=== PATIENT | female | born 1940 | race Caucasian/White ===

== ENCOUNTER 2019-05-08 14:25 | Outpatient (RCR) | payer MEDICARE, OTHER, SELFPAY ==
[2019-05-08 14:52] VITALS: BP 135/82; PULSE 90; RESP 16; TEMP 37; BMI 26.6
--- NOTE | 2019-05-08 16:14 | PCM.WC.HP ---
(1) Dependent edema Status: Chronic Current Visit: Yes Code(s): R60.9 - Edema, unspecified (2) Leg swelling Status: Chronic Current Visit: Yes Code(s): M79.89 - Other specified soft tissue disorders (3) Leg edema Status: Chronic Current Visit: Yes Code(s): R60.0 - Localized edema (4) Overweight Status: Chronic Current Visit: Yes Code(s): E66.3 - Overweight (5) History of melanoma Status: Chronic Current Visit: No Code(s): Z85.820 - Personal history of malignant melanoma of skin (6) Hypertension Status: Chronic Current Visit: No Code(s): I10 - Essential (primary) hypertension (7) Debility Status: Chronic Current Visit: Yes Code(s): R53.81 - Other malaise (8) Wheelchair bound Status: Chronic Current Visit: Yes Code(s): Z99.3 - Dependence on wheelchair (9) Multiple sclerosis Status: Chronic Current Visit: Yes Code(s): G35 - Multiple sclerosis (10) Pressure ulcer of right heel, stage 3 Status: Chronic Current Visit: Yes Code(s): L89.613 - Pressure ulcer of right heel, stage 3 (11) Contractures of both knees Status: Chronic Current Visit: No Code(s): M24.561 - Contracture, right knee; M24.562 - Contracture, left knee History of Present Illness Date of Service: 05/08/19 Chief Complaint: Pressure ulcer of the right heel, stage III History of Wound: This is a 78-year-old female who presents with a pressure ulcer of the right heel, stage III. It began approximately 3 months ago. At the time, she was hospitalized at the [facility] in [place], [place], as result of a suicide attempt with pills. She remained hospitalized for approximately 10 days. She then was transferred to a assisted for an additional 6 weeks. During that period of time, the patient developed a pressure ulceration on her right heel. Most recently, she has been using Aquacel silver topically. She has returned home, to the care of her . She suffers from multiple sclerosis, and is wheelchair-bound. She spends long hours each day sitting idlely with her legs in a dependent position. Past Medical History Past Medical History: Chronic Problems Dependent edema (Chronic) Leg swelling (Chronic) Leg edema (Chronic) Overweight (Chronic) History of melanoma (Chronic) Hypertension (Chronic) Debility (Chronic) Wheelchair bound (Chronic) Multiple sclerosis (Chronic) Pressure ulcer of right heel, stage 3 (Chronic) Contractures of both knees (Chronic) Past Medical History: Patient's history is negative for myocardial infarction, congestive heart failure, cerebrovascular accident, diabetes mellitus, pulmonary disease, renal disease, thyroid disease, and hyperlipidemia. Patient has a history of hypertension. She has previously been treated for melanoma on her face. She is also known to suffer from debility related to multiple sclerosis. Surgical History: - - Patient has a history of cholecystectomy and hysterectomy. She is undergone left hip and knee replacement procedures. She has had a melanoma excised from her face. The patient is a G4, P5 Ab0 (twins) Allergies/Adverse Reactions: Allergies lorazepam [From Ativan] Allergy (Verified 05/08/19 15:23) Unknown Penicillins [PCN] Allergy (Verified 05/08/19 15:23) Unknown Sulfa (Sulfonamide Antibiotics) Allergy (Verified 05/08/19 15:23) Unknown all narcotics Allergy (Uncoded 05/08/19 15:23) Unknown Home Medications: Ambulatory Orders Medication Instructions Recorded Amlodipine [Norvasc] mg PO DAILY 05/08/19 Citalopram [Celexa] 10 mg PO DAILY 05/08/19 Gabapentin [Neurontin] 300 mg PO BID 05/08/19 Pumpkin Seed Extract/Soy Germ [Azo 300 mg PO 05/08/19 Bladder Control Capsule] Ropinirole HCl [Requip] 10 mg PO 4X/DAY 05/08/19 Tizanidine HCl 10 mg PO TID 05/08/19 - Family History Paternal - - Patient's family history is noncontributory Social History: The patient lives with her . She is retired from the real estate industry. She denies use of tobacco products. She consumes alcoholic beverages occasionally. Smoking Status: Never smoker Review of Systems Constitutional: Denies: Chills, Fever, Weight Change Eyes: Denies: Pain, Vision Change HEENT: Denies: Difficulty Hearing, Difficulty Swallowing, Sinus Congestion Cardiovascular: Denies: Chest Pain, Palpitations Respiratory: Denies: Cough, Shortness of Breath Gastrointestinal: Denies: Diarrhea, Nausea, Vomiting Genitourinary: Denies: Dysuria, Hematuria Endocrine: Denies: Heat/ Cold Intolerance, Polydipsia, Polyuria Hematologic/ Lymphatic: Denies: Easy Bruising, Easy Bleeding - Physical Exam Vital Signs Temp Pulse Resp BP 98.6 F 90 16 135/82 H 05/08/19 14:52 05/08/19 14:52 05/08/19 14:52 05/08/19 14:52 General: Alert, Oriented x3, Cooperative, No apparent distress, Well developed, Well nourished, - - The patient is alert, oriented, and appropriate HEENT: Atraumatic, PERRLA, EOMI, Normocephalic Oral: Moist Mucosa Neck: Supple, No JVD, Negative Carotid Bruits, Negative Hepatojugular Reflux, No Nodes, No Nuchal Rigidity, Trachea Midline Lungs: Clear to auscultation, Normal air movement, No rhonchi, No wheeze, No rales Cardiovascular: Regular rate, Regular Rhythm, Normal S1, Normal S2, No murmurs Abdomen: Soft, Non Tender, Non-Distended Extremities: No clubbing, No cyanosis, No Calf Tenderness, - - Mild to moderate swelling and edema is noted in the lower extremities bilaterally. A well-healed wound is noted on the right lateral calf, the site of the previous wound. There is a stage III pressure ulceration of the right heel. Callus is noted to surround the ulceration. There is a moderate amount of bioburden and nonviable tissue present within the base of the ulceration. Mentions are documented elsewhere. There is no sign of infection or cellulitis. Skin: No rashes Wound Measurements and Assessment WC - Nurse 1 - General Ulcer Measurement Start: 05/08/19 14:52 Freq: Status: Active Protocol: Activity Type Activity Date Activity User E-Sign Co-Sign Detail Recorded Client Recorded Date Recorded By Document 05/08/19 14:52 [facility] [id number] 05/08/19 15:14 [facility] 05/08/19 14:52 Wound Center Nurse 1 [Ulcer Assessment] #1- RT HEEL -Combined with other wound No -Current Size (cm) - Length 1.5 -Current Size (cm) - Width 2.6 -Current Size (cm) - Depth 0.2 -Total Square Cm 3.90 -Date of Last Picture (Recall this 05/08/19 field) -Photo Taken Yes -Epithelialization None Present -Tunneling No -Undermining/Tunneling No -Circular Undermining No -Exudate Amt Small -Exudate Type Serosanguineous -Wound Margin Distinct, Outline Attached -Granulation Amt Medium (34-66%) -Granulation Quality Red -Slough/Fibrin Yes -Necrosis Amt Small (1-33%) -Necrotic Tissue Type Adherent Slough -Texture (Silvia-wound Skin Appearance) Assessed, Scarring -Moisture (Silvia-wound Skin Appearance Assessed ) -Color (Silvia-wound Skin Appearance) Assessed, Erythema -Temperature (Silvia-wound Skin No Abnormality Appearance) (Pt Warm) -Tenderness on Palpation (Silvia-wound No Skin Appearance) -Ulcer Cleansing Rinsed/ Irrigated with Saline -Foul Odor after Cleansing No -Anesthetic Used 5% Lidocaine Gel [Edema Assessment] -Lower Limb Edema Present Yes -Right Calf (cm) 38.2 -Right Ankle (cm) 25 -Left Calf (cm) 36 -Left Ankle (cm) 24.3 WC - Nurse 2 - General Ulcer CM Notes Start: 05/08/19 14:52 Freq: Status: Active Protocol: Activity Type Activity Date Activity User E-Sign Co-Sign Detail Recorded Client Recorded Date Recorded By Document 05/08/19 15:42 MW [id number] 05/08/19 15:58 MW 05/08/19 15:42 Wound Center Nurse 2 [Procedure/Treatment] #1- RT HEEL -Time 15:42 -Correct Patient Yes -Correct Side, Site, Position Yes -Correct Procedure Yes -Procedure Performed Yes -Type of Procedure Debridement -Clinical Debridement Subcutaneous -Post Debridement Size (cm) - Length 1.5 -Post Debridement Size (cm) - Width 2.7 -Post Debridement Size (cm) - Depth 0.2 -Total Square Cm 4.05 -Wound/Ulcer Outcome Not Healed -Ulcer Cleansing Rinsed/ Irrigated with Saline -Foul Odor after Cleansing No -Bioengineered Tissue No -Bleeding Controlled with Pressure -Offloading No -Treatment Response Procedure Tolerated Well [See Physician Procedure note for Specifics] Pain Scale: 0-10 Numeric [Pain] -Is Patient Pain Free? Yes Musculoskeletal: Muscle Wasting - Extremities Neurological: Cranial nerves II-XII grossly intact, - - Patient is weak and debilitated, consistent with her diagnosis of multiple sclerosis. Psych/Mental Status: Normal Affect, Appropriate, Alert and oriented to time, place, person, mood and affect Debridement Note Post-Debridement Measurements/Treatment WC - Nurse 2 - General Ulcer CM Notes Start: 05/08/19 14:52 Freq: Status: Active Protocol: Activity Type Activity Date Activity User E-Sign Co-Sign Detail Recorded Client Recorded Date Recorded By Document 05/08/19 15:42 MW [id number] 05/08/19 15:58 MW 05/08/19 15:42 Wound Center Nurse 2 #1- RT HEEL -Time 15:42 -Correct Patient Yes -Correct Side, Site, Position Yes -Correct Procedure Yes -Procedure Performed Yes -Type of Procedure Debridement -Clinical Debridement Subcutaneous -Post Debridement Size (cm) - Length 1.5 -Post Debridement Size (cm) - Width 2.7 -Post Debridement Size (cm) - Depth 0.2 -Total Square Cm 4.05 -Wound/Ulcer Outcome Not Healed -Ulcer Cleansing Rinsed/ Irrigated with Saline -Foul Odor after Cleansing No -Bioengineered Tissue No -Bleeding Controlled with Pressure -Offloading No -Treatment Response Procedure Tolerated Well Pain Scale: 0-10 Numeric Is Patient Pain Free? Yes Laterality: Right - Heel Type of Debridement: Excisional debridement Anesthesia Used: 5% Lidocaine Gel Depth: Down to and including healthy tissue, in the subcutaneous layer Percentage of wound debrided: 100 Instrument Used: 7mm curette Tissue Removed: Bioburden and nonviable tissue Severity: Fat Layer Exposed Amount of bleeding with debridement: Mild Bleeding Controlled with: Compression and gauze Patient tolerated procedure well Assessment/Plan Active Problems Dependent edema (Chronic) Leg swelling (Chronic) Leg edema (Chronic) Overweight (Chronic) Debility (Chronic) Wheelchair bound (Chronic) Multiple sclerosis (Chronic) Pressure ulcer of right heel, stage 3 (Chronic) Assessment: This is a 78-year-old female who suffers from multiple sclerosis, and associated debility. She is wheelchair-bound. Following hospitalization from a suicide attempt with pills, patient developed a pressure ulceration on the right heel. This appears to be a stage III pressure ulceration. Plan: The patient has had recent laboratory studies at [facility], and we will attempt to obtain copies of these results. Patient has been encouraged to take a well balanced and nutritious diet. Offloading measures are to be implemented. We are to prescribe a padded heel boot, to be worn [id number]. Low air loss mattress or gel overlay will be prescribed as well. It has been recommended that the patient be frequently repositioned, to avoid pressure to any given area. We are to recommend and prescribe a lift chair, to assist the patient and elevating her lower extremities, and to facilitate transfers from wheelchair to chair. A padded cushion for her wheelchair has been recommended, and the patient's indicates that the patient possesses such cushioning. We are to continue the use of Aqua jessica silver topically, which will be changed on a daily basis. A noninvasive lower extremity arterial study will be obtained to assess the patient's lower extremity arterial perfusion. The patient has been advised to elevate her lower extremities as much as possible, to heart level, even during daytime hours, to minimize the dependent edema in her lower extremities. The patient will return in 1 week for reassessment, and weekly visits thereafter are anticipated. Serial debridements are also anticipated. Influenza vaccine was not administered today. Patient is not a smoker. She stands 5 feet 6 inches tall. She weighs 165 pounds. BMI is 26.6, which places the patient in an overweight category. Mild weight loss has been suggested, in collaboration with her primary care physician has been advised.
== END 2019-05-08 23:59 ==
LOC: WC 14:25
PROVIDERS: Visit Provider Surgery
DX: L89.613 Pressure ulcer of right heel, stage 3 (principal); I10 Essential (primary) hypertension; G35 Multiple sclerosis; Z99.3 Dependence on wheelchair; Z90.710 Acquired absence of both cervix and uterus; Z90.49 Acquired absence of other specified parts of digestive tract; Z88.2 Allergy status to sulfonamides; Z88.0 Allergy status to penicillin; Z85.820 Personal history of malignant melanoma of skin; Z88.5 Allergy status to narcotic agent; Z79.899 Other long term (current) drug therapy; E66.3 Overweight; Z68.26 Body mass index [BMI] 26.0-26.9, adult
CPT/HCPCS: 11042; 99203; G0463

== ENCOUNTER 2019-06-08 14:00 | Outpatient (RCR) | payer MEDICARE, OTHER, SELFPAY ==
[2019-05-09 01:22] VITALS: BP 135/82; PULSE 90; RESP 16; TEMP 37
[2019-05-18 10:18] VITALS: BP 144/81; PULSE 87; RESP 18; TEMP 36.6; BMI 26.6
--- NOTE | 2019-05-18 11:42 | PCM.WC.PN ---
(1) Pressure ulcer of right heel, stage 3 Status: Chronic Current Visit: Yes Code(s): L89.613 - Pressure ulcer of right heel, stage 3 (2) Dependent edema Status: Chronic Current Visit: Yes Code(s): R60.9 - Edema, unspecified (3) Multiple sclerosis Status: Chronic Current Visit: Yes Code(s): G35 - Multiple sclerosis (4) Wheelchair bound Status: Chronic Current Visit: Yes Code(s): Z99.3 - Dependence on wheelchair Type of Wound Date of Service: 05/18/19 Chief Complaint: Pressure ulcer of the right heel, stage III History of Wound: This is a 78-year-old female who presents with a pressure ulcer of the right heel, stage III. It began approximately 3 months ago. At the time, she was hospitalized at the [facility] in [place], [place], as result of a suicide attempt with pills. She remained hospitalized for approximately 10 days. She then was transferred to a fdc for an additional 6 weeks. During that period of time, the patient developed a pressure ulceration on her right heel. Most recently, she has been using Aquacel silver topically. She has returned home, to the care of her . She suffers from multiple sclerosis, and is wheelchair-bound. She spends long hours each day sitting idlely with her legs in a dependent position. Progress of Wound: Courtesy visit for Dr. Bourne. No new concerns at this time. Been applying aquacel daily as advised. They however are not open to gel mattress and lift chair which was recommended at her last visit. She feels well at this time. - Physical Exam Vital Signs Temp Pulse Resp BP 98 F 87 18 144/81 H 05/18/19 10:18 05/18/19 10:18 05/18/19 10:18 05/18/19 10:18 General: Alert, Oriented x3, Cooperative, No apparent distress HEENT: Atraumatic, Normocephalic Oral: Moist Mucosa Neck: Supple Lungs: Normal air movement Extremities: No cyanosis, Edema Skin: Ulcer/ Wound Wound Measurements and Assessment WC - Nurse 1 - General Ulcer Measurement Start: 05/18/19 10:17 Freq: Status: Active Protocol: Activity Type Activity Date Activity User E-Sign Co-Sign Detail Recorded Client Recorded Date Recorded By Document 05/18/19 10:18 [id number] 05/18/19 10:19 RB 05/18/19 10:18 Wound Center Nurse 1 [Ulcer Assessment] #1- RT HEEL -Combined with other wound No -Current Size (cm) - Length 1.5 -Current Size (cm) - Width 2.8 -Current Size (cm) - Depth 0.2 -Total Square Cm 4.20 -Tunneling No -Undermining/Tunneling No -Circular Undermining No -Exudate Amt Small -Exudate Type Serosanguineous -Wound Margin Flat & Intact -Granulation Amt Medium (34-66%) -Granulation Quality [place] -Slough/Fibrin Yes -Necrosis Amt Small (1-33%) -Necrotic Tissue Type Adherent Slough -Structure Exposed N/A -Texture (Silvia-wound Skin Appearance) Assessed,Callus -Moisture (Silvia-wound Skin Appearance Assessed ) -Color (Silvia-wound Skin Appearance) Assessed -Temperature (Silvia-wound Skin No Abnormality Appearance) (Pt Warm) -Tenderness on Palpation (Silvia-wound No Skin Appearance) -Ulcer Cleansing Wound Cleanser -Foul Odor after Cleansing No -Anesthetic Used 5% Lidocaine Gel Musculoskeletal: No Muscle Wasting Neurological: Cranial nerves II-XII grossly intact Psych/Mental Status: Normal Affect Debridement Note Wound debrided: Right heel Wound Grade/Stage: Stage III Type of Debridement: Excisional debridement Anesthesia Used: 4% Lidocaine Solution Depth: Down to and including healthy tissue, in the subcutaneous layer Percentage of wound debrided: 100 Instrument Used: 5mm curette Tissue Removed: Slough and devitalized tissue Severity: Fat Layer Exposed Amount of bleeding with debridement: Mild Bleeding Controlled with: Pressure Patient tolerated procedure well Assessment/Plan Active Problems Dependent edema (Chronic) Wheelchair bound (Chronic) Multiple sclerosis (Chronic) Pressure ulcer of right heel, stage 3 (Chronic) Assessment: This is a 78-year-old female who suffers from multiple sclerosis, and associated debility. She is wheelchair-bound. Following hospitalization from a suicide attempt with pills, patient developed a pressure ulceration on the right heel. This appears to be a stage III pressure ulceration. Plan: Debridement done as documented above, procedure was well tolerated. Continue Aquacel daily. Offloading again recommended. Increased protein intake and exercise as tolerated. Her questions were answered and she was davised to call with any further questions or concerns. Follow up in [address] Bourne.
== END 2019-06-08 23:59 ==
LOC: WC 14:00
PROVIDERS: Visit Provider Surgery
DX: L89.613 Pressure ulcer of right heel, stage 3 (principal); G35 Multiple sclerosis; Z99.3 Dependence on wheelchair; R60.0 Localized edema

== ENCOUNTER 2019-06-27 11:00 | Outpatient (RCR) | payer MEDICARE, OTHER, SELFPAY ==
[2019-05-18 10:18] VITALS: BMI 26.6
[2019-06-09 01:18] VITALS: BP 144/81; PULSE 87; RESP 18; TEMP 36.6
[2019-06-20 09:07] VITALS: BP 161/86; PULSE 78; RESP 18; TEMP 36.4; BMI 26.6
--- NOTE | 2019-06-20 09:55 | PCM.WC.HP ---
(1) Suicide attempt Status: Chronic Current Visit: Yes Code(s): T14.91XA - Suicide attempt, initial encounter (2) Dependent edema Status: Chronic Current Visit: Yes Code(s): R60.9 - Edema, unspecified (3) Leg swelling Status: Chronic Current Visit: Yes Code(s): M79.89 - Other specified soft tissue disorders (4) Leg edema Status: Chronic Current Visit: Yes Code(s): R60.0 - Localized edema (5) Overweight Status: Chronic Current Visit: No Code(s): E66.3 - Overweight (6) History of melanoma Status: Chronic Current Visit: No Code(s): Z85.820 - Personal history of malignant melanoma of skin (7) Hypertension Status: Chronic Current Visit: No Code(s): I10 - Essential (primary) hypertension (8) Debility Status: Chronic Current Visit: Yes Code(s): R53.81 - Other malaise (9) Wheelchair bound Status: Chronic Current Visit: Yes Code(s): Z99.3 - Dependence on wheelchair (10) Multiple sclerosis Status: Chronic Current Visit: Yes Code(s): G35 - Multiple sclerosis (11) Pressure ulcer of right heel, stage 3 Status: Chronic Current Visit: Yes Code(s): L89.613 - Pressure ulcer of right heel, stage 3 (12) Contractures of both knees Status: Chronic Current Visit: No Code(s): M24.561 - Contracture, right knee; M24.562 - Contracture, left knee History of Present Illness Date of Service: 06/20/19 Chief Complaint: Pressure ulcer of the right heel, stage III History of Wound: This is a 78-year-old female who presented with a pressure ulcer of the right heel, stage III. It began approximately 3 months prior to presentation. At the time, she was hospitalized at the [facility] in [place], [place], as result of a suicide attempt with pills. She remained hospitalized for approximately 10 days. She then was transferred to a alf for an additional 6 weeks. During that period of time, the patient developed a pressure ulceration on her right heel. Most recently, she has been using Aquacel silver topically. She has returned home, to the care of her . She suffers from multiple sclerosis, and is wheelchair-bound. She spends long hours each day sitting idlely with her legs in a dependent position. Past Medical History Past Medical History: Chronic Problems Dependent edema (Chronic) Leg swelling (Chronic) Leg edema (Chronic) Overweight (Chronic) History of melanoma (Chronic) Hypertension (Chronic) Debility (Chronic) Wheelchair bound (Chronic) Multiple sclerosis (Chronic) Pressure ulcer of right heel, stage 3 (Chronic) Contractures of both knees (Chronic) Suicide attempt (Chronic) Surgical History: - - Patient has a history of cholecystectomy and hysterectomy. She is undergone left hip and knee replacement procedures. She has had a melanoma excised from her face. The patient is a G4, P5 Ab0 (twins) Allergies/Adverse Reactions: Allergies lorazepam [From Ativan] Allergy (Verified 05/08/19 15:23) Unknown Penicillins [PCN] Allergy (Verified 05/08/19 15:23) Unknown Sulfa (Sulfonamide Antibiotics) Allergy (Verified 05/08/19 15:23) Unknown all narcotics Allergy (Uncoded 05/08/19 15:23) Unknown Home Medications: Ambulatory Orders Medication Instructions Recorded Amlodipine [Norvasc] mg PO DAILY 05/08/19 Citalopram [Celexa] 10 mg PO DAILY 05/08/19 Gabapentin [Neurontin] 300 mg PO BID 05/08/19 Pumpkin Seed Extract/Soy Germ [Azo 300 mg PO 05/08/19 Bladder Control Capsule] Ropinirole HCl [Requip] 10 mg PO 4X/DAY 05/08/19 Tizanidine HCl 10 mg PO TID 05/08/19 - Family History Paternal - - Patient's family history is noncontributory Smoking Status: Never smoker Review of Systems Constitutional: Denies: Chills, Fever, Weight Change Eyes: Denies: Pain, Vision Change HEENT: Denies: Difficulty Hearing, Difficulty Swallowing, Sinus Congestion Cardiovascular: Denies: Chest Pain, Palpitations Respiratory: Denies: Cough, Shortness of Breath Gastrointestinal: Denies: Diarrhea, Nausea, Vomiting Genitourinary: Denies: Dysuria, Hematuria Endocrine: Denies: Heat/ Cold Intolerance, Polydipsia, Polyuria Hematologic/ Lymphatic: Denies: Easy Bruising, Easy Bleeding - Physical Exam Vital Signs Temp Pulse Resp BP 97.6 F L 78 18 161/86 H 06/20/19 09:07 06/20/19 09:07 06/20/19 09:07 06/20/19 09:07 General: Alert, Oriented x3, Cooperative, No apparent distress, Well developed, Well nourished HEENT: Atraumatic, PERRLA, EOMI, Normocephalic Oral: Moist Mucosa Neck: No JVD Lungs: Normal air movement Abdomen: Non-Distended Extremities: No clubbing, No cyanosis, No edema, No Calf Tenderness, - - The ulceration of the right heel persists. Dimensions are documented elsewhere. There is no sign of infection or cellulitis. There is a moderate amount of bioburden. Dimensions are documented elsewhere. Skin: No rashes Wound Measurements and Assessment WC - Nurse 1 - General Ulcer Measurement Start: 06/20/19 09:07 Freq: Status: Active Protocol: Activity Type Activity Date Activity User E-Sign Co-Sign Detail Recorded Client Recorded Date Recorded By Document 06/20/19 09:07 DL [id number] 06/20/19 09:18 DL 06/20/19 09:07 Wound Center Nurse 1 [Ulcer Assessment] #1- RT HEEL -Combined with other wound No -Current Size (cm) - Length 1.0 -Current Size (cm) - Width 1.8 -Current Size (cm) - Depth 0.3 -Total Square Cm 1.80 -Photo Taken No -Epithelialization Small 1-33% -Tunneling No -Undermining/Tunneling No -Circular Undermining No -Exudate Amt Small -Exudate Type Serosanguineous -Wound Margin Thickened -Granulation Amt Small (1-33%) -Granulation Quality [place] -Slough/Fibrin Yes -Necrosis Amt Large (67-100%) -Necrotic Tissue Type Adherent Slough -Structure Exposed N/A -Texture (Silvia-wound Skin Appearance) Assessed,Callus -Moisture (Silvia-wound Skin Appearance Assessed,Dry/ ) Scaly -Color (Silvia-wound Skin Appearance) Assessed -Temperature (Silvia-wound Skin No Abnormality Appearance) (Pt Warm) -Tenderness on Palpation (Silvia-wound No Skin Appearance) -Ulcer Cleansing Rinsed/ Irrigated with Saline -Foul Odor after Cleansing No -Anesthetic Used 4% Lidocaine Solution [Edema Assessment] -Lower Limb Edema Present No Musculoskeletal: Muscle Wasting - Lower extremities Neurological: Cranial nerves II-XII grossly intact Psych/Mental Status: Normal Affect, Appropriate, Alert and oriented to time, place, person, mood and affect Debridement Note Laterality: Right - Heel Type of Debridement: Excisional debridement Anesthesia Used: 5% Lidocaine Gel Depth: Down to and including healthy tissue, in the subcutaneous layer Percentage of wound debrided: 100 Instrument Used: 5mm curette Tissue Removed: Bioburden and nonviable tissue Severity: Fat Layer Exposed Amount of bleeding with debridement: Mild Bleeding Controlled with: Compression and gauze Patient tolerated procedure well Assessment/Plan Active Problems Dependent edema (Chronic) Leg swelling (Chronic) Leg edema (Chronic) Debility (Chronic) Wheelchair bound (Chronic) Multiple sclerosis (Chronic) Pressure ulcer of right heel, stage 3 (Chronic) Suicide attempt (Chronic) Assessment: This is a 78-year-old female who suffers from multiple sclerosis, and associated debility. She is wheelchair-bound. Following hospitalization from a suicide attempt with pills, patient developed a pressure ulceration on the right heel. This appears to be a stage III pressure ulceration. Plan: Offloading measures are to be continued. To assist in the offloading process, we will seek procurement of a Multi-Podus boot for the right foot, which will be worn so as to diminish pressure to the right heel. We are to continue Aquacel Silver applied topically daily. We have recommended increased protein intake. We have prescribed a low air loss mattress in the recent past. Frequent repositioning has been recommended. The patient has been advised to elevate her lower extremities as much as possible to minimize dependent edema. A noninvasive lower extremity arterial study has been previously ordered, but not performed. We will reschedule the patient for a lower extremity arterial assessment. Routine laboratory studies are to be obtained, including a CBC, comprehensive metabolic profile, and a serum prealbumin. The patient is to return in 1 week for reassessment. Influenza vaccine was not administered today. The patient is not a smoker. She stands 5 feet 6 inches tall. She weighs 165 pounds. BMI is 26.6, which places the patient in an overweight category. Mild weight loss has been suggested in collaboration with the his primary care physician, though a well-balanced nutritious diet has been recommended.
--- NOTE | 2019-06-27 08:17 | ART_ITS ---
Reason For Study: PAD Procedure A bilateral lower extremity continuous wave Doppler with analog waveform analysis,segmental pressures,and ankle brachial indexes without exercise. Left Segmental Pressures Left brachial= 164mmHg. Left posterior tibial artery = 222mmHg. Left dorsalis pedis artery = 225mmHg. The left dorsalis pedis waveforms are triphasic. The left posterior tibial artery waveforms are triphasic. Right Segmental Pressures Right brachial= 169mmHg. Right thigh = >254mmHg. Right calf = 112mmHg. Right posterior tibial artery = 160mmHg. Right dorsalis pedis artery = 162mmHg. The right dorsalis pedis waveforms are biphasic. The right posterior tibial artery waveforms are biphasic. Indices The right ankle brachial index by the dorsalis pedis is 0.96. The right ankle brachial index by the posterior tibial artery is 0.95. The left ankle brachial index by the dorsalis pedis is 1.33. The left ankle brachial index by the posterior tibial artery is 1.31. Interpretation Summary Biphasic Doppler waveforms are noted at ankle level on the right. Triphasic Doppler waveforms are noted at ankle level on the left. Pulse-volume recording waveform amplitudes are diminished at calf, ankle, and digital levels on the right. Resting ankle-brachial indices are normal bilaterally. There is no specific evidence of arterial occlusive disease in the lower extremities, based upon the findings of this resting non-invasive arterial study. There is, however, a significant disparity in the lower extremity pressures. Clinical correlation is advised. Ordering Physician: Jay Bourne Performed By: Antonieta Rivera RVT
[2019-06-27 10:16] VITALS: BP 165/96; PULSE 76; RESP 18; TEMP 36.4; BMI 26.6
--- NOTE | 2019-06-27 11:00 | HP.PCM_ITS ---
(1) Suicide attempt Status: Chronic Current Visit: Yes Code(s): T14.91XA - Suicide attempt, ini tial encounter (2) Dependent edema Status: Chronic Current Visit: Yes Code(s): R60.9 - Edema, unspecified (3) Leg swelling Status: Chronic Current Visit: Yes Code(s): M79.89 - Other specified soft tissue disorders (4) Leg edema Status: Chronic Current Visit: Yes Code(s): R60.0 - Localized edema (5) Overweight Status: Chronic Current Visit: No Code(s): E66.3 - Overweight (6) History of melanoma Status: Chronic Current Visit: No Code(s): Z85.820 - Personal history of malignant melanoma of skin (7) Hypertension Status: Chronic Current Visit: No Code(s): I10 - Essential (primary) hypertension (8) Debility Status: Chronic Current Visit: Yes Code(s): R53.81 - Other malaise (9) Wheelchair bound Status: Chronic Current Visit: Yes Code(s): Z99.3 - Dependence on wheelchair (10) Multiple sclerosis Status: Chronic Current Visit: Yes Code(s): G35 - Multiple sclerosis (11) Pressure ulcer of right heel, stage 3 Status: Chronic Current Visit: Yes Code(s): L89.613 - Pressure ulcer of right heel, stage 3 (12) Contractures of both knees Status: Chronic Current Visit: No Code(s): M24.561 - Contracture, right knee; M24.562 - Contracture, left knee History of Present Illness Date of Service: 06/27/19 Chief Complaint: Pressure ulcer of the right heel, stage III History of Wound: This is a 78-year-old female who presented with a pressure ulcer of the right heel, stage III. It began approximately 3 months prior to presentation. At the time, she was hospitalized at the [facility] in [place], [place], as result of a suicide attempt with pills. She remained hospitalized for approximately 10 days. [facility] 6 [facility]. During that period of time, the patient developed a pressure ulceration on her right heel. Most recently, she has been using Aquacel silver topically. She has returned home, to the care of her . She suffers from multiple sclerosis, and is wheelchair-bound. She spends long hours each day sitting idlely with her legs in a dependent position. Past Medical History Past Medical History: Chronic Problems Dependent edema (Chronic) Leg swelling (Chronic) Leg edema (Chronic) Overweight (Chronic) History of melanoma (Chronic) Hypertension (Chronic) Debility (Chronic) Wheelchair bound (Chronic) Multiple sclerosis (Chronic) Pressure ulcer of right heel, stage 3 (Chronic) Contractures of both knees (Chronic) Suicide attempt (Chronic) Surgical History: - - Patient has a history of cholecystectomy and hysterectomy. She is undergone left hip and knee replacement procedures. She has had a me lanoma excised from her face. The patient is a G4, P5 Ab0 (twins) Allergies/Adverse Reactions: Allergies lorazepam [From Ativan] Allergy (Verified 05/08/19 15:23) Unknown Penicillins [PCN] Allergy (Verified 05/08/19 15:23) Unknown Sulfa (Sulfonamide Antibiotics) Allergy (Verified 05/08/19 15:23) Unknown all narcotics Allergy (Uncoded 05/08/19 15:23) Unknown Home Medications: Ambulatory Orders Medication Instructions Recorded Amlodipine [Norvasc] mg PO DAILY 05/08/19 Citalopram [Celexa] 10 mg PO DAILY 05/08/19 Gabapentin [Neurontin] 300 mg PO BID 05/08/19 Pumpkin Seed Extract/Soy Germ [Azo 300 mg PO 05/08/19 Bladder Control Capsule] Ropinirole HCl [Requip] 10 mg PO 4X/DAY 05/08/19 Tizanidine HCl 10 mg PO TID 05/08/19 - Family History Paternal - - Patient's family history is noncontributory Smoking Status: Never smoker Review of Systems Constitutional: Denies: Chills, Fever, Weight Change Eyes: Denies: Pain, Vision Change HEENT: Denies: Difficulty Hearing, Difficulty Swallowing, Sinus Congestion Cardiovascular: Denies: Chest Pain, Palpitations Respiratory: Denies: Cough, Shortness of Breath Gastrointestinal: Denies: Diarrhea, Nausea, Vomiting Genitourinary: Denies: Dysuria, Hematuria Endocrine: Denies: Heat/ Cold Intolerance, Polydipsia, Polyuria Hematologic/ Lymphatic: Denies: Easy Bruising, Easy Bleeding - Physical Exam Vital Signs Temp Pulse Resp BP 97.5 F L 76 18 165/96 H 06/27/19 10:16 06/27/19 10:16 06/27/19 10:16 06/27/19 10:16 General: Alert, Oriented x3, Cooperative, No apparent distress, Well developed, Well nourished HEENT: Atraumatic, PERRLA, EOMI, Normocephalic Oral: Moist Mucosa Neck: No JVD Lungs: Normal air movement Abdomen: Non-Distended Extremities: No clubbing, No cyanosis, No edema, No Calf Tenderness, - - The ulceration of the right posterior heel persists. The base of the ulceration demonstrates a mild amount of bioburden and nonviable tissue. The periphery of the ulceration demonstrates callus formation. Dimensions are documented elsewhere. There is no sign of infection or cellulitis. Skin: No rashes Wound Measurements and Assessment WC - Nurse 1 - General Ulcer Measurement Start: 06/20/19 09:07 Freq: Status: Active Protocol: Activity Type Activity Date Activity User E-Sign Co-Sign Detail Recorded Client Recorded Date Recorded By Document 06/27/19 10:16 [id number] 06/27/19 10:29 DL 06/27/19 10:16 Wound Center Nurse 1 [Ulcer Assessment] #1- RT HEEL -Current Size (cm) - Length 0.8 -Current Size (cm) - Width 1.5 -Current Size (cm) - Depth 0.2 -Total Square Cm 1.20 -Photo Taken No -Exudate Amt Small -Exudate Type Serosanguineous -Wound Margin Thickened -Granulation Amt Medium (34-66%) -Granulation Quality [place] -Necrosis Amt Medium (34-66%) -Necrotic Tissue Type Adherent Slough -Texture (Silvia-wound Skin Appearance) Callus,Scarring -Moisture (Silvia-wound Skin Appearance Dry/Scaly ) -Color (Silvia-wound Skin Appearance) No Abnormality -Temperature (Silvia-wound Skin No Abnormality Appearance) (Pt Warm) -Tenderness on Palpation (Silvia-wound No Skin Appearance) -Ulcer Cleansing Rinsed/ Irrigated with Saline -Foul Odor after Cleansing No -Anesthetic Used 4% Lidocaine Solution Musculoskeletal: Muscle Wasting - Lower extremities Neurological: Cranial nerves II-XII grossly intact Psych/Mental Status: Normal Affect, Appropriate, Alert and oriented to time, place, person, mood and affect Debridement Note Post-Debridement Measurements/Treatment WC - Nurse 2 - General Ulcer CM Notes Start: 06/20/19 09:07 Freq: Status: Active Protocol: Activity Type Activity Date Activity User E-Sign Co-Sign Detail Recorded Client Recorded Date Recorded By Document 06/20/19 09:50 [id number] 06/20/19 09:57 06/20/19 09:50 Wound Center Nurse 2 #1- RT HEEL -Time 09:50 -Correct Patient Yes -Correct Side, Site, Position Yes -Correct Procedure Yes -Procedure Performed Yes -Type of Procedure Debridement -Clinical Debridement Subcutaneous -Post Debridement Size (cm) - Length 0.9 -Post Debridement Size (cm) - Width 1.2 -Post Debridement Size (cm) - Depth 0.2 -Total Square Cm 1.08 -Wound/Ulcer Outcome Not Healed -Ulcer Cleansing Not Cleansed -Foul Odor after Cleansing No -Bioengineered Tissue No -Bleeding Controlled with Pressure -Other Multi podis boot -Offloading Yes -Treatment Response Procedure Tolerated Well Pain Scale: 0-10 Numeric Is Patient Pain Free? Yes Laterality: Right - Heel Type of Debridement: Excisional debridement Anesthesia Used: 5% Lidocaine Gel Depth: Down to and including healthy tissue, in the subcutaneous layer Percentage of wound debrided: 100 Instrument Used: 5mm curette Tissue Removed: Bioburden and nonviable tissue Severity: Fat Layer Exposed Amount of bleeding with debridement: Mild Bleeding Controlled with: Compression and gauze Patient tolerated procedure well Assessment/Plan Active Problems Dependent edema (Chronic) Leg swelling (Chronic) Leg edema (Chronic) Debility (Chronic) Wheelchair bound (Chronic) Multiple sclerosis (Chronic) Pressure ulcer of right heel, stage 3 (Chronic) Suicide attempt (Chronic) Assessment: This is a 78-year-old female who suffers from multiple sclerosis, and associated debility. She is wheelchair-bound. Following hospitalization from a suicide attempt with pills, patient developed a pressure ulceration on the right heel. This appears to be a stage III pressure ulceration. Plan: Offloading measures are to be continued. To assist in the offloading process, we will seek procurement of a Multi-Podus boot for the right foot, which will be worn to diminish pressure to the right heel. The boot has been ordered, and is awaited. We are to continue Aquacel Silver applied topically daily. We have recommended increased protein intake. We have prescribed a low air loss mattress in the recent past. Frequent repositioning has been recommended. The patient has been advised to elevate her lower extremities as much as possible to minimize dependent edema. A noninvasive lower extremity arterial study reveals biphasic waveforms at ankle level on the right, and triphasic waveforms at ankle level on the left. Resting ankle?brachial indices are bilaterally normal. Routine laboratory studies are to be obtained, including a CBC, comprehensive metabolic profile, and a serum prealbumin. The patient has not yet arranged to undergo laboratory testing, and results are awaited. The patient is to return in 1 week for reassessment. Influenza vaccine was not administered today. The patient is not a smoker. She stands 5 feet 6 inches tall. She weighs 165 pounds. BMI is 26.6, which places the patient in an overweight category. Mild weight loss has been suggested in collaboration with the his primary care physician, though a well-balanced nutritious diet has been recommended.
== END 2019-07-08 23:59 ==
LOC: WC 11:00
PROVIDERS: Referring Provider Surgery; Visit Provider Surgery
DX: I73.9 Peripheral vascular disease, unspecified (principal); L89.613 Pressure ulcer of right heel, stage 3; G35 Multiple sclerosis; I10 Essential (primary) hypertension; Z99.3 Dependence on wheelchair; R60.0 Localized edema; M79.89 Other specified soft tissue disorders
CPT/HCPCS: 11042; 93923

== ENCOUNTER 2019-07-10 14:43 | Outpatient (RCR) | payer MEDICARE, OTHER, SELFPAY ==
[2019-07-09 00:58] VITALS: BP 165/96; PULSE 76; RESP 18; TEMP 36.4
[2019-07-10 14:35] VITALS: BP 167/93; PULSE 89; RESP 16; TEMP 35.4; BMI 26.6
--- NOTE | 2019-07-10 15:32 | PCM.WC.HP ---
(1) Dependent edema Status: Chronic Current Visit: Yes Code(s): R60.9 - Edema, unspecified (2) Leg swelling Status: Chronic Current Visit: Yes Code(s): M79.89 - Other specified soft tissue disorders (3) Leg edema Status: Chronic Current Visit: Yes Code(s): R60.0 - Localized edema (4) Overweight Status: Chronic Current Visit: No Code(s): E66.3 - Overweight (5) History of melanoma Status: Chronic Current Visit: No Code(s): Z85.820 - Personal history of malignant melanoma of skin (6) Hypertension Status: Chronic Current Visit: No Code(s): I10 - Essential (primary) hypertension (7) Debility Status: Chronic Current Visit: Yes Code(s): R53.81 - Other malaise (8) Wheelchair bound Status: Chronic Current Visit: Yes Code(s): Z99.3 - Dependence on wheelchair (9) Multiple sclerosis Status: Chronic Current Visit: Yes Code(s): G35 - Multiple sclerosis (10) Pressure ulcer of right heel, stage 3 Status: Chronic Current Visit: Yes Code(s): L89.613 - Pressure ulcer of right heel, stage 3 (11) Contractures of both knees Status: Chronic Current Visit: Yes Code(s): M24.561 - Contracture, right knee; M24.562 - Contracture, left knee (12) Suicide attempt Status: Chronic Current Visit: Yes Code(s): T14.91XA - Suicide attempt, initial encounter History of Present Illness Date of Service: 07/10/19 Chief Complaint: Pressure ulcer of the right heel, stage III History of Wound: This is a 78-year-old female who presented with a pressure ulcer of the right heel, stage III. It began approximately 3 months prior to presentation. At the time, she was hospitalized at the [facility] in [place], [place], as result of a suicide attempt with pills. She remained hospitalized for approximately 10 days. She then was transferred to a care home for an additional 6 weeks. During that period of time, the patient developed a pressure ulceration on her right heel. Most recently, she has been using Aquacel silver topically. She has returned home, to the care of her . She suffers from multiple sclerosis, and is wheelchair-bound. She spends long hours each day sitting idlely with her legs in a dependent position. Past Medical History Past Medical History: Chronic Problems Dependent edema (Chronic) Leg swelling (Chronic) Leg edema (Chronic) Overweight (Chronic) History of melanoma (Chronic) Hypertension (Chronic) Debility (Chronic) Wheelchair bound (Chronic) Multiple sclerosis (Chronic) Pressure ulcer of right heel, stage 3 (Chronic) Contractures of both knees (Chronic) Suicide attempt (Chronic) Surgical History: - - Patient has a history of cholecystectomy and hysterectomy. She is undergone left hip and knee replacement procedures. She has had a melanoma excised from her face. The patient is a G4, P5 Ab0 (twins) Allergies/Adverse Reactions: Allergies lorazepam [From Ativan] Allergy (Verified 05/08/19 15:23) Unknown Penicillins [PCN] Allergy (Verified 05/08/19 15:23) Unknown Sulfa (Sulfonamide Antibiotics) Allergy (Verified 05/08/19 15:23) Unknown all narcotics Allergy (Uncoded 05/08/19 15:23) Unknown Home Medications: Ambulatory Orders Medication Instructions Recorded Amlodipine [Norvasc] mg PO DAILY 05/08/19 Citalopram [Celexa] 10 mg PO DAILY 05/08/19 Gabapentin [Neurontin] 300 mg PO BID 05/08/19 Pumpkin Seed Extract/Soy Germ [Azo 300 mg PO 05/08/19 Bladder Control Capsule] Ropinirole HCl [Requip] 10 mg PO 4X/DAY 05/08/19 Tizanidine HCl 10 mg PO TID 05/08/19 - Family History Paternal - - Patient's family history is noncontributory Smoking Status: Never smoker Review of Systems Constitutional: Denies: Chills, Fever, Weight Change Eyes: Denies: Pain, Vision Change HEENT: Denies: Difficulty Hearing, Difficulty Swallowing, Sinus Congestion Cardiovascular: Denies: Chest Pain, Palpitations Respiratory: Denies: Cough, Shortness of Breath Gastrointestinal: Denies: Diarrhea, Nausea, Vomiting Genitourinary: Denies: Dysuria, Hematuria Endocrine: Denies: Heat/ Cold Intolerance, Polydipsia, Polyuria Hematologic/ Lymphatic: Denies: Easy Bruising, Easy Bleeding - Physical Exam Vital Signs Temp Pulse Resp BP 95.7 F L 89 16 167/93 H 07/10/19 14:35 07/10/19 14:35 07/10/19 14:35 07/10/19 14:35 General: Alert, Oriented x3, Cooperative, No apparent distress, Well developed, Well nourished, - - The patient's debility is noted as manifest by weakness and limited mobility HEENT: Atraumatic, PERRLA, EOMI, Normocephalic Oral: Moist Mucosa Neck: No JVD Lungs: Normal air movement Abdomen: Non-Distended Extremities: No clubbing, No cyanosis, No Calf Tenderness, - - Only slight swelling and edema is noted in the lower extremities bilaterally. The ulceration on the right posterior heel is little changed in size or appearance. There is no sign of infection or cellulitis. Dimensions are documented elsewhere. There is a moderate amount of bioburden and nonviable tissue. Callus continues to surround the ulceration. Skin: No rashes Wound Measurements and Assessment - Nurse 1 - General Ulcer Measurement Start: 07/10/19 14:34 Freq: Status: Active Protocol: Activity Type Activity Date Activity User E-Sign Co-Sign Detail Recorded Client Recorded Date Recorded By Document 07/10/19 14:35 [facility] [id number] 07/10/19 14:42 [facility] 07/10/19 14:35 Wound Center Nurse 1 [Ulcer Assessment] #1- RT HEEL -Combined with other wound No -Current Size (cm) - Length 0.7 -Current Size (cm) - Width 1.5 -Current Size (cm) - Depth 0.2 -Total Square Cm 1.05 -Photo Taken No -Epithelialization None Present -Tunneling No -Undermining/Tunneling No -Circular Undermining No -Exudate Amt Small -Exudate Type Serosanguineous -Wound Margin Distinct, Outline Attached -Granulation Amt Large (67-100%) -Granulation Quality Red -Slough/Fibrin Yes -Necrosis Amt Small (1-33%) -Necrotic Tissue Type Adherent Slough -Texture (Silvia-wound Skin Appearance) Assessed, Scarring -Moisture (Silvia-wound Skin Appearance Assessed,Dry/ ) Scaly -Color (Silvia-wound Skin Appearance) Assessed -Temperature (Silvia-wound Skin No Abnormality Appearance) (Pt Warm) -Tenderness on Palpation (Silvia-wound No Skin Appearance) -Ulcer Cleansing Rinsed/ Irrigated with Saline -Foul Odor after Cleansing No -Anesthetic Used 5% Lidocaine Gel - Nurse 2 - General Ulcer CM Notes Start: 07/10/19 14:34 Freq: Status: Active Protocol: Activity Type Activity Date Activity User E-Sign Co-Sign Detail Recorded Client Recorded Date Recorded By Document 07/10/19 15:28 DV [id number] 07/10/19 15:30 DV 07/10/19 15:28 Wound Center Nurse 2 [Procedure/Treatment] -Time 15:28 -Correct Patient Yes -Correct Side, Site, Position Yes -Correct Procedure Yes -Procedure Performed Yes -Type of Procedure Debridement -Clinical Debridement Subcutaneous -Post Debridement Size (cm) - Length 1.0 -Post Debridement Size (cm) - Width 1.5 -Post Debridement Size (cm) - Depth 0.2 -Total Square Cm 1.50 -Wound/Ulcer Outcome Not Healed -Ulcer Cleansing Rinsed/ Irrigated with Saline -Foul Odor after Cleansing No -Bioengineered Tissue No -Bleeding Controlled with Pressure -Offloading No -Treatment Response Procedure Tolerated Well [See Physician Procedure note for Specifics] Pain Scale: 0-10 Numeric [Pain] -Is Patient Pain Free? Yes Musculoskeletal: Muscle Wasting - Lower extremities Neurological: Cranial nerves II-XII grossly intact Psych/Mental Status: Normal Affect, Appropriate, Alert and oriented to time, place, person, mood and affect Debridement Note Post-Debridement Measurements/Treatment SHIRLENE - Nurse 2 - General Ulcer CM Notes Start: 07/10/19 14:34 Freq: Status: Active Protocol: Activity Type Activity Date Activity User E-Sign Co-Sign Detail Recorded Client Recorded Date Recorded By Document 07/10/19 15:28 DV [id number] 07/10/19 15:30 DV 07/10/19 15:28 Wound Center Nurse 2 #1- RT HEEL -Time 15:28 -Correct Patient Yes -Correct Side, Site, Position Yes -Correct Procedure Yes -Procedure Performed Yes -Type of Procedure Debridement -Clinical Debridement Subcutaneous -Post Debridement Size (cm) - Length 1.0 -Post Debridement Size (cm) - Width 1.5 -Post Debridement Size (cm) - Depth 0.2 -Total Square Cm 1.50 -Wound/Ulcer Outcome Not Healed -Ulcer Cleansing Rinsed/ Irrigated with Saline -Foul Odor after Cleansing No -Bioengineered Tissue No -Bleeding Controlled with Pressure -Offloading No -Treatment Response Procedure Tolerated Well Pain Scale: 0-10 Numeric Is Patient Pain Free? Yes Laterality: Right - Heel Type of Debridement: Excisional debridement Anesthesia Used: 5% Lidocaine Gel Depth: Down to and including healthy tissue, in the subcutaneous layer Percentage of wound debrided: 100 Instrument Used: 5mm curette Tissue Removed: Bioburden and nonviable tissue Severity: Fat Layer Exposed Amount of bleeding with debridement: Mild Bleeding Controlled with: Compression and gauze Patient tolerated procedure well Assessment/Plan Active Problems Dependent edema (Chronic) Leg swelling (Chronic) Leg edema (Chronic) Debility (Chronic) Wheelchair bound (Chronic) Multiple sclerosis (Chronic) Pressure ulcer of right heel, stage 3 (Chronic) Contractures of both knees (Chronic) Suicide attempt (Chronic) Assessment: This is a 78-year-old female who suffers from multiple sclerosis, and associated debility. She is wheelchair-bound. Following hospitalization from a suicide attempt with pills, patient developed a pressure ulceration on the right heel. This appears to be a stage III pressure ulceration. Plan: Offloading measures are to be continued. To assist in the offloading process, we prescribed and recommended a Multi-Podus boot for the right foot. Ever, the patient has refused to obtain the boot, designed to diminish pressure to the right heel. We are to continue Aquacel Silver applied topically daily. We have recommended increased protein intake. We have prescribed a low air loss mattress in the recent past. Frequent repositioning has been recommended. The patient has been advised to elevate her lower extremities as much as possible to minimize dependent edema. A noninvasive lower extremity arterial study reveals biphasic waveforms at ankle level on the right, and triphasic waveforms at ankle level on the left. Resting ankle?brachial indices are bilaterally normal. Routine laboratory studies are to be obtained, including a CBC, comprehensive metabolic profile, and a serum prealbumin. She claims to have undergone these diagnostic studies at [facility] last week, and we will attempt to obtain these results. With respect to offloading measures for the right heel, a nurses hat will be fashioned for offloading purposes. The patient is to return in 1 week for reassessment. Influenza vaccine was not administered today. The patient is not a smoker. She stands 5 feet 6 inches tall. She weighs 165 pounds. BMI is 26.6, which places the patient in an overweight category. Mild weight loss has been suggested in collaboration with the his primary care physician, though a well-balanced nutritious diet has been recommended.
== END 2019-08-08 23:59 ==
LOC: WC 14:43
PROVIDERS: Referring Provider Surgery; Visit Provider Surgery
DX: I73.9 Peripheral vascular disease, unspecified (principal); L89.613 Pressure ulcer of right heel, stage 3; R60.0 Localized edema; I10 Essential (primary) hypertension; Z85.820 Personal history of malignant melanoma of skin; Z99.3 Dependence on wheelchair; G35 Multiple sclerosis
CPT/HCPCS: 11042